=== PATIENT | female | born 1980 | race African-American/Black ===

== ENCOUNTER 2017-05-16 05:38 | Emergency (ER) | payer OTHER | END 2017-05-16 06:33 | disposition home or self-care (01) | LOC: ERS 05:38 | DX: M25.551 Pain in right hip (principal); M54.5 Low back pain; M41.9 Scoliosis, unspecified | CPT/HCPCS: 99283 ==

== ENCOUNTER 2017-10-24 14:14 | Emergency (ER) | payer OTHER, SELFPAY ==
[2017-10-24] MEDS ORDERED: Dexamethasone 4 mg/ml Vial ONE (14:30)
[2017-10-24] MEDS ORDERED: Ketorolac Tromethamine 30 MG/ML VIAL ONE (14:31)
== END 2017-10-24 15:00 | disposition home or self-care (01) ==
LOC: ERS 14:14
DX: J01.90 Acute sinusitis, unspecified (principal)
CPT/HCPCS: 96372; J1100; J1885

== ENCOUNTER 2020-01-02 20:59 | Emergency (ER) | payer BC, SELFPAY ==
[2020-01-02] MEDS ORDERED: Bupivacaine 0.5% 10 ML VIAL ONE (21:45)
[2020-01-02] MEDS ORDERED: Lidocaine 1% PF 5 ML VIAL ONE (21:45)
== END 2020-01-02 23:02 | disposition home or self-care (01) ==
LOC: ERS 20:59
DX: M62.838 Other muscle spasm (principal); F17.210 Nicotine dependence, cigarettes, uncomplicated; Z79.899 Other long term (current) drug therapy
CPT/HCPCS: 20552; J3490

== ENCOUNTER 2022-07-03 12:25 | Emergency (ER) | payer BC, SELFPAY | END 2022-07-03 14:38 | disposition home or self-care (01) | LOC: ERS 12:25 | DX: M25.561 Pain in right knee (principal); M25.562 Pain in left knee; F17.210 Nicotine dependence, cigarettes, uncomplicated ==